=== PATIENT | male | born 1980 ===

== ENCOUNTER 2025-07-15 06:15 | Day surgery (SDC) | payer OTHER, SELFPAY | END 2025-07-15 12:39 | disposition home or self-care (01) | LOC: GI 06:15 | PROVIDERS: ATTENDING PHYSICIAN Surgery | DX: Z12.11 Encounter for screening for malignant neoplasm of colon (principal); Z80.0 Family history of malignant neoplasm of digestive organs; K62.89 Other specified diseases of anus and rectum | CPT/HCPCS: 45380; 88305 ==